=== PATIENT | female | born 1940 | race Caucasian/White ===

== ENCOUNTER 2017-05-16 22:14 | Emergency (ER) | payer MEDICARE, OTHER ==
[~2017-05-16] VITALS: Ht 157.5 cm; Wt 68.0 kg
[~2017-05-16 22:14] MED LIST: CALC500T12 PO; CARV3.1260 PO; CLOP75TA27 PO; DOCU-144 PO; HYDR-3498 PO; LISI-313 PO
[2017-05-16 22:19] VITALS: Ht 157.5 cm; Wt 68.0 kg
[2017-05-16] MEDS ORDERED: AMLO5TAB4 PO (22:49)
[2017-05-16] MEDS ORDERED: KETOROLAC 30 MG INJ IM STA (22:59)
[2017-05-16] MEDS ORDERED: morphine 10 MG INJ IM ONE (23:00)
--- NOTE | 2017-05-16 23:48 | RADRPT ---
PROCEDURE: Left wrist. CLINICAL INDICATION: Pain. TECHNIQUE: Three views including PA, lateral and oblique views were performed. COMPARISON: None. FINDINGS: There is a fracture of the distal radial metaphysis with mild impaction and dorsal angulation. Ther e is a fracture of the distal ulna. There is no dislocation. There are degenerative changes of the first basal joint with osteophytes. Bone mineralization is decreased. There is no radiopaque fore ign body or abnormal calcification. IMPRESSION: Distal radius and ulnar fractures. Osteopenia. .Fran Sepulveda MD, Date Time Electronically viewed and signed by .Fran Sepulveda MD, MD on 05/16/2017 23:48 .T/
[2017-05-17] MEDS ORDERED: HYDR-906 PO (00:47)
[2017-05-17] MEDS ORDERED: NAPR-685 PO (00:47)
[2017-05-17] MEDS ORDERED: HYDROCODONE/APAP (10/325) TAB PO ONE (01:00)
[2017-05-17 01:35] VITALS: BP 168/78; PULSE 77; RESP 20; TEMP 98.1
--- NOTE | 2017-05-17 05:50 | ERA ---
ER Documentation Chief Complaint Date/Time DATE: 05/17/17 TIME: 05:46 Chief Complaint S/P fall, noted with left wrist pain and swelling HPI 76-year-old female presents with left wrist pain after she suffered a mechanical fall. She remembers the mechanism well. She had no chest pain shortness of breath lightheadedness or near syncope prior to the fall. She had instant left wrist pain with swelling. No hand elbow or shoulder pain. ROS All systems reviewed and are negative except as per history of present illness. Medications Home Meds Active Scripts Naproxen* (Naproxen*) 375 Mg Tablet, 375 MG PO BID Y for PAIN, #14 TAB Prov:CHANTALDHRUVKERRI DO 05/17/17 Hydrocodone/Acetaminophen ([place] 5-325 Tablet) 1 Each Tablet, 1 EACH PO Q6, #20 TAB Prov:KERRI CORNEJO DO 05/17/17 Reported Medications Amlodipine Besylate* (Norvasc*) 5 Mg Tablet, 5 MG PO DAILY, TAB 05/16/17 Discontinued Reported Medications Carvedilol* (Carvedilol*) 3.125 Mg Tablet, 3.125 MG PO BID, #60 TAB 03/24/16 Lisinopril* (Lisinopril*) 5 Mg Tablet, 5 MG PO DAILY, #30 TAB 03/24/16 Clopidogrel Bisulfate (Clopidogrel) 75 Mg Tablet, 75 MG PO DAILY, #30 TAB 03/24/16 Hydrocodone Bit-Acetaminophen* ([place]*) 5-325 Mg Tab, 1 TAB PO Q4H Y for SEVERE PAIN LEVEL 7-10, TAB 03/24/16 Calcium Carbonate* ([place]-500*) 1 Tab Tablet, 1 TAB PO BID, TAB 03/24/16 Discontinued Scripts Hydrocodone Bit-Acetaminophen* ([place]*) 5-325 Mg Tab, 1 TAB PO Q4H Y for PAIN, # 30 TAB Prov:ISABELL CAMPOVERDE 03/27/16 Docusate Sodium* (Colace*) 100 Mg Capsule, 100 MG PO Q12H for 30 Days, CAP Prov:ISABELL CAMPOVERDE 03/27/16 Allergies Allergies: Coded Allergies: No Known Allergy (Unverified , 05/16/17) PMhx/Soc History of Surgery: Yes (left humerous) Anesthesia Reaction: No Hx Neurological Disorder: No Hx Respiratory Disorders: No Hx Cardiac Disorders: Yes (HTN) Hx Psychiatric Problems: No Hx Miscellaneous Medical Probl: Yes (pls see EMR) Hx Alcohol Use: No Hx Substance Use: No Hx Tobacco Use: No Smoking Status: Never smoker Physical Exam Vitals Vital Signs Date Time Temp Pulse Resp B/P Pulse Ox O2 Delivery O2 Flow Rate FiO2 05/17/17 01:35 98.1 77 20 168/78 100 Room Air 05/16/17 22:41 98.3 80 18 181/83 98 Room Air 05/16/17 22:19 99.7 80 20 143/97 96 Physical Exam Const: [] Mild distress Head: Atraumatic Eyes: Normal Conjunctiva ENT: Normal External Ears, Nose and Mouth. Neck: Full range of motion..~ No meningismus. Resp: Clear to auscultation bilaterally Cardio: Regular rate and rhythm, no murmurs Skin: No petechiae or rashes Back: No midline or flank tenderness Ext: No cyanosis, left wrist with posterior swelling close to the radial edge and tenderness to palpation along the distal radius and ulna. Distal pulses intact with radial pulse 2 out of 2 and capillary refill less than 1 second all digits. Motor function intact in hand. Neur: Awake and alert and oriented 3, no focal deficit Results 24 hrs Current Medications Medications (Trade) Dose Ordered Sig/Hilario Route PRN Reason Start Time Stop Time Status Last Admin Dose Admin Morphine Sulfate (morphine) 3 mg ONCE ONCE IM 05/16/17 23:00 05/16/17 23:02 DC 05/16/17 23:10 Ketorolac Tromethamine (Toradol) 30 mg ONCE STAT IM 05/16/17 22:59 05/16/17 23:02 DC 05/16/17 23:11 Acetaminophen/ Hydrocodone Bitart ([place] (10/325)) 1 tab ONCE ONCE PO 05/17/17 01:00 05/17/17 01:01 DC 05/17/17 01:00 Procedures/MDM Dorsal distal radius and ulna fracture. She was given 3 mg of morphine and 30 mg of IM Toradol which did help with the pain somewhat. Volar splint was placed as the x-ray showed a fracture fragment overlying the ulna. A unable to tell which side of the radius the fracture fragment is from therefore I cannot reduce this fracture in the emergency room.. I did speak with Dr. Cody who stated that he could see the patient first thing in the morning if she calls office at 9 and he will see her that same day. He did recommend outpatient management. Patient is right-handed. Gave her a 10 mg [place] she did have some pain prior to leaving. I am discharging with [place] and naproxen as well as Ortho follow-up tomorrow. Left wrist x-ray interpretation: See left distal radius ulna fracture with a large fracture fragment overlying the ulna which must come from the radius. I see no carpal bone fractures. Mild soft tissue swell ED splint application note: Volar fiberglass splint was placed. Perform neurovascular assessment after this splint was placed and patient was neurovascularly intact with capillary refill less than 1 second in good motor function. Departure Diagnosis: Primary Impression: Distal radius fracture, left Condition: Stable Patient Instructions: Radius And Ulna Fx, Reduction Required Referrals: NELLA CODY MD Additional Instructions: Call Dr. Cody's office tomorrow for same day appointment. Tell him you were in Emergency room and the ER doctor spoke with Dr. Cody. KERRI CORNEJO DO May 17, 2017 05:50
== END 2017-05-17 01:36 | disposition home or self-care (01) ==
LOC: E/R 22:14
DX: S52.502A Unspecified fracture of the lower end of left radius, initial encounter for closed fracture (principal); S52.602A Unspecified fracture of lower end of left ulna, initial encounter for closed fracture; I10 Essential (primary) hypertension; W01.0XXA Fall on same level from slipping, tripping and stumbling without subsequent striking against object, initial encounter; Y92.89 Other specified places as the place of occurrence of the external cause
CPT/HCPCS: 29125; 73110; 96372; 99284; J1885; J2270